=== PATIENT | female | born 1980 | race Caucasian/White ===

== ENCOUNTER 2018-08-08 12:00 | Inpatient (IN) | payer OTHER ==
[~2018-08-08] VITALS: Ht 162.6 cm; Wt 91.3 kg
[2018-08-08 13:36] VITALS: Ht 162.6 cm; Wt 91.3 kg
[2018-08-08 13:37] VITALS: BP 133/96; RESP 20
[2018-08-08] MEDS ORDERED: LABE100T7 PO (13:40)
[2018-08-08] MEDS ORDERED: THYR90TA PO (13:41)
[2018-08-08] MEDS ORDERED: CARBOPROST 250 MCG INJ IM PRN (14:00)
[2018-08-08] MEDS ORDERED: OXYTOCIN 30 UNITS/LR 500 ML IV SCH ×2 (14:00)
[2018-08-08] MEDS ORDERED: MISOPROSTOL 200 MCG TAB PR PRN (14:00)
[2018-08-08] MEDS ORDERED: LIDOCAINE 1% (MPF) 30 ML INJ INJ PRN (14:00)
[2018-08-08] MEDS ORDERED: METHYLERGONOVINE 0.2 MG INJ IM PRN (14:00)
[2018-08-08] MEDS ORDERED: OXYTOCIN 30 UNITS/LR 500 ML IV PRN (14:00)
[2018-08-08] MEDS ORDERED: IBUPROFEN 600 MG TAB PO PRN (14:00)
[2018-08-08] MEDS: LACTATED RINGER'S 1,000 ML IV SCH ×2 (15:01→22:44)
[2018-08-08] MEDS: MISOPROSTOL 50 MCG CAPSULE VAG SCH ×3 (15:55→20:00)
[2018-08-08] MEDS ORDERED: MISOPROSTOL 50 MCG CAPSULE VAG SCH (17:00)
[2018-08-08] MEDS: LABETALOL 100 MG TAB PO SCH (21:10)
--- NOTE | 2018-08-08 22:05 | PREOPHP ---
DATE OF ADMISSION: 08/08/2018 HISTORY OF PRESENT ILLNESS: This is a 37-year-old female, 2, para 1, abortions 0, due date o f 08/15/2018. Last period 11/08/2017. The patient had a previous vaginal delivery in 2017 and a hea lthy baby girl, at which time, she had preeclampsia. This patient came for follow up at 13 weeks of her and she had declined amniocentesis. She had done a few visits to the perinat ologist during the , at which time, she was diagnosed with a low lying placenta that moved u p and then she was diagnosed with a fibroid that was about 5 cm in diameter and was behind the placen ta, but did not give her any hard time. The patient came in with a weight of 180 and she gained 20 p ounds during this . Towards the third trimester, she became slightly anemic. She passed 1 hour PP and all the other tests were negative. She was immune to rubella and she had no other proble ms. GBS was negative, but she started having slight raising of her blood pressure, for which labetal ol was ordered 100 mg b.i.d. The patient was becoming slightly edematous and her blood pressure was coming up controlled with labetalol. She had no headaches, dizziness, epigastric pain and normal ref lexes, and the patient was advised for induction at 39 weeks since the blood pressure was borderline. The patient did not meet the criteria for preeclampsia but she was getting swollen with a little hy perreflexia and no signs of preeclampsia, but induction was a decision to avoid the possibility of a recurrent preeclampsia. PAST MEDICAL HISTORY: Raghavendra and pernicious anemia. ALLERGIES: SHE IS ALLERGIC TO SULFA. FAMILY HISTORY: Diabetes in her father, heart disease and GI problems. The sister with anemia as we ll. SOCIAL HISTORY: The patient does not drink or smoke, and she is pretty healthy. PHYSICAL EXAMINATION: VITAL SIGNS: Stable. She weighs 203, blood pressure is 140/80 with a starting blood pressure of the same about 130/80 in the beginning of the . The patient is afebrile and the pulse is 80, r espirations 16. HEAD AND NECK: Normal. CHEST: Clear. HEART: Normal sinus rhythm. LUNGS: Clear. BREASTS: Soft, nontender, no masses. ABDOMEN: Soft. Uterus at 39 weeks. The heart tones are normal. PELVIC: With a cervix that is fingertip not effaced, cephalic, -2, membranes intact and reflexes wer e 2+ normal pulses. EXTREMITIES: The edema is about 1+. DIAGNOSIS: A 39 weeks , impending preeclampsia with hypertension of . The patient is being admitted for induction of labor and delivery with misoprostol. Dictated By: DELGADO ROUSSEAU/RAMAKRISHNA Conf#: [id number] DID#: [id number]
[2018-08-09] MEDS: MISOPROSTOL 50 MCG CAPSULE VAG SCH ×3 (04:00→09:00)
[2018-08-09] MEDS: LACTATED RINGER'S 1,000 ML IV SCH ×2 (06:02→07:02)
--- NOTE | 2018-08-09 06:18 | PREAC ---
Date/Time of Note Date/Time of Note DATE: 08/09/18 TIME: 06:16 Anesthesia Eval and Record Evaluation Time Pre-Procedure Interview DATE: 08/09/18 TIME: 06:16 Age 38 Sex female NPO: 8 hrs Preoperative diagnosis IUP Planned procedure L&D Epidural Past Medical History Past Medical History: Includes Cardio: HTN Endo: Hypothyroid Surgery & Anesthesia Issues No known issue Meds Anticoagulation: No Beta Reji within 24 hr: Yes Reason Beta Reji not given: Pt. not on B-Reji Reported Medications Thyroid,Pork (FUNCTIONAL TESTER TYPEWRITERS THYROID) 90 Mg Tablet, 180 MG PO ACB A, TAB 08/08/18 Labetalol Hcl* (Labetalol Hcl*) 100 Mg Tablet, 100 MG PO BID, TAB 08/08/18 Current Medications Lactated Ringer's 1,000 ml @ 125 mls/hr Q8H IV Last administered on 08/09/18at 06:02; Admin Dose 125 MLS/HR; Start 08/08/18 at 13:44 Lidocaine (Xylocaine 1% (Mpf)) 30 ml ONCE PRN INJ .EPISIOTOMY; Start 08/08/18 at 14:00 Oxytocin/Lactated Ringer's 500 ml @ 500 mls/hr ONCE POST IV ; Start 08/08/18 at 14:00 Oxytocin/Lactated Ringer's 500 ml @ 125 mls/hr POST IV ; Start 08/08/18 at 14:00 Ibuprofen (Motrin) 600 mg ONCE PRN PO .PAIN 1-5; Start 08/08/18 at 14:00 Oxytocin/Lactated Ringer's 500 ml @ 0 mls/hr ONCE PRN IV .VAGINAL BLEEDING; Start 08/08/18 at 14:00 Methylergonovine Maleate (Methergine) 0.2 mg ONCE PRN IM .VAGINAL BLEEDING; Start 08/08/18 at 14:00 Carboprost Tromethamine (Hemabate) 250 mcg ONCE PRN IM .VAGINAL BLEEDING; Start 08/08/18 at 14:00 Misoprostol (Cytotec) 1,000 mcg ONCE PRN NC .VAGINAL BLEEDING; Start 08/08/18 at 14:00 Labetalol HCl (Normodyne) 100 mg BID PO Last administered on 08/08/18at 21:10; Admin Dose 100 MG; Start 3/13/19 at 21:00 Thyroid ([place] Thyroid) 180 mg DAILY PO ; Start 08/09/18 at 09:00 Misoprostol (Cytotec 50 Mcg Capsule) 50 mcg Q4 VAG Last administered on 08/08/18at 15:55; Admin Dose 50 MCG; Start 08/08/18 at 16:00 Meds reviewed: Yes Allergies Coded Allergies: Sulfa (Sulfonamide Antibiotics) (Verified Allergy, Unknown, 08/08/18) Allergies Reviewed: Yes Labs/Studies Labs Reviewed: Reviewed by anesthesiologist Result Diagram: 08/08/18 1355 08/08/18 1355 Laboratory Tests 08/08/18 13:55 Blood Bank Test 08/08/18 13:55 Antibody Screen NEGATIVE Blood Type A POSITIVE Rh Immune Globulin Candidate NO test: Positive Studies: ECG Pre-procedure Exam Last vitals Vital Signs Date Temp Pulse Resp B/P (MAP) Pulse Ox O2 O2 Flow FiO2 Time Delivery Rate 08/08/18 98.0 20 133/96 Room Air 13:37 (108) Airway: Adequate mouth opening, Adequate thyromental dist Mallampati: Mallampati II Teeth: Normal Lung: Normal Heart: Normal ASA Physical Status ASA physical status: 3 Emergency: None Planned Anesthetic Neuraxial: Epidural Planned Pain Management Epidural Pre-operative Attestations Prior to commencing anesthesia and surgery, the patient was re-evaluated, there was verification of: *The patient's identity *The results of appropriate recent lab work and preoperative vital signs *The above evaluation not changing prior to induction *Anesthetic plan, risk benefits, alternative and complications discussed with patient/family; questions answered; patient/family understands, accepts and wishes to proceed. KARLY SMALL MD Aug 09, 2018 06:18
[2018-08-09] MEDS ORDERED: ROPIVACAINE 0.2% 100 ML ONE (06:20)
[2018-08-09] MEDS ORDERED: ONDANSETRON 4 MG INJ IV PRN ×2 (06:30→12:00)
[2018-08-09] MEDS ORDERED: DIPHENHYDRAMINE 50 MG INJ IV PRN ×2 (06:30→12:00)
[2018-08-09] MEDS ORDERED: NALOXONE (0.4 MG/ML) INJ IV PRN (06:30)
[2018-08-09] MEDS ORDERED: FENTAnyl 2MCG/ML-ROPIV 0.2% 100 ML BAG EPI SCH ×2 (06:30)
[2018-08-09] MEDS ORDERED: THYROID 30 MG TAB PO SCH (09:00)
[2018-08-09] MEDS: LABETALOL 100 MG TAB PO SCH ×2 (09:06→21:49)
[2018-08-09] MEDS ORDERED: OXYTOCIN 30 UNITS/LR 500 ML IV SCH (09:30)
--- NOTE | 2018-08-09 11:58 | LDN ---
Date/Time of Note Date/Time of Note DATE: 08/09/18 TIME: 11:55 Delivery Summary 38 years old female admitted for induction of labor due to hypertension at 39 weeks Patient had a previous vaginal delivery 2 years ago Had no PIH at this time Weeks of Gestation At 39.1 weeks Placenta Delivered: Spontaneously Meconium: none, Light Episiotomy: No Laceration repair: Vaginal mucosa laceration repaired under epidural Anesthesia type: Epidural Sponge & Needle done & correct: Yes All needle counts correct: Yes Any foreign bodies felt in the: No Delivery Information Sex Infant Sex: female Apgars 1 Minute: 9 5 Minute: 9 Suctioning Nose & mouth suctioned at ricky: Yes Delee suction performed: No Umbilical Cord Umbilical cord with: 3 Vessels Cord presentations: no nuchal cord Cord Blood was obtained: Yes Mother & Baby Disposition Disposition Mom & Baby to Maternity; Good: Yes DELGADO LION MD Aug 09, 2018 11:58
[2018-08-09] MEDS ORDERED: DIPHENHYDRAMINE 25 MG CAP PO PRN (12:00)
[2018-08-09] MEDS ORDERED: OXYTOCIN 30 UNITS/LR 500 ML IV PRN (12:00)
[2018-08-09] MEDS: IBUPROFEN 800 MG TAB PO SCH ×2 (12:00→18:00)
[2018-08-09] MEDS ORDERED: METHYLERGONOVINE 0.2 MG INJ IM PRN (12:00)
[2018-08-09] MEDS ORDERED: THYROID PORK 180 MG PO SCH (12:00)
[2018-08-09] MEDS ORDERED: LANOLIN HPA 1 PKT TOP PRN (12:00)
[2018-08-09] MEDS ORDERED: SENNA/DOCUSATE NA (8.6MG/50MG) TAB PO PRN (12:00)
[2018-08-09] MEDS ORDERED: HYDROCODONE/APAP (5/325) TAB PO PRN ×2 (12:00)
[2018-08-09] MEDS ORDERED: ACETAMINOPHEN 325 MG TAB PO PRN (12:00)
[2018-08-09] MEDS ORDERED: MAGNESIUM HYDROXIDE 30ML CUP PO PRN (12:00)
[2018-08-09] MEDS ORDERED: CARBOPROST 250 MCG INJ IM PRN (12:00)
[2018-08-09] MEDS ORDERED: DIBUCAINE 1% 30 GM OINT TOP PRN (12:00)
[2018-08-09] MEDS ORDERED: MISOPROSTOL 200 MCG TAB PR PRN (12:00)
[2018-08-09] MEDS ORDERED: ONDANSETRON 4 MG TAB PO PRN (12:00)
[2018-08-09 14:20] VITALS: BP 147/83; PULSE 85; RESP 18
[2018-08-09] MEDS: ACETAMINOPHEN 325 MG TAB PO PRN (14:35)
[2018-08-09 15:20] VITALS: BP 140/69; PULSE 89; RESP 18
[2018-08-09 16:20] VITALS: BP 138/89; PULSE 82; RESP 82
[2018-08-09] MEDS: BENZOCAINE 20% 56 ML SPRAY TOP PRN ×2 (16:39→16:40)
[2018-08-09] MEDS: LACTATED RINGER'S 1,000 ML IV* SCH ×2 (17:38→19:59)
[2018-08-09 19:50] VITALS: BP 142/89; PULSE 100; RESP 20
[2018-08-10] MEDS: ACETAMINOPHEN 325 MG TAB PO PRN ×2 (00:12→05:01)
[2018-08-10 00:28] VITALS: BP 132/75; PULSE 89; RESP 20
[2018-08-10 04:34] VITALS: BP 120/83; PULSE 71; RESP 18
[2018-08-10] MEDS: IBUPROFEN 800 MG TAB PO SCH ×3 (06:00→12:00)
[2018-08-10 08:00] VITALS: BP 132/91; PULSE 70; RESP 18
[2018-08-10] MEDS ORDERED: THYROID 30 MG TAB PO SCH (09:00)
--- NOTE | 2018-08-10 10:21 | PN ---
Date/Time of Note Date/Time of Note DATE: 08/10/18 TIME: 10:20 OB Subjective Subjective Subjective feel good. stable. uterus comtracted lochia normal breast feeding OB Objective HEENT: WNL Heart: Rhythm Normal Lungs: Clear, Equal Abdomen: WNL Extremities: Normal Reflexes: Normal DELGADO LION MD Aug 10, 2018 10:21
[2018-08-10] MEDS: LABETALOL 100 MG TAB PO SCH (10:30)
--- NOTE | 2018-08-10 13:05 | PAC ---
Date/Time of Note Date/Time of Note DATE: 08/10/18 TIME: 13:04 Post-Anesthesia Notes Post-Anesthesia Note Last documented vital signs Vital Signs Date Temp Pulse Resp B/P (MAP) Pulse Ox O2 O2 Flow FiO2 Time Delivery Rate 08/10/18 97.9 70 18 132/91 Room Air 08:00 (105) Activity: WNL Respiratory function: WNL Cardiovascular function: WNL Mental status: Baseline Pain reasonably controlled: Yes Hydration appropriate: Yes Nausea/Vomiting absent: Yes Comments BP:112/56, P:78, Spo2:100%, T:98,9 KARLY SMALL MD Aug 10, 2018 13:04
[2018-08-10 16:20] VITALS: BP 146/85; PULSE 83; RESP 18
--- NOTE | 2018-08-11 00:05 | DS ---
Date/Time of Note Date/Time of Note DATE: 08/11/18 TIME: 00:03 Obstetrical Discharge Record Final Diagnosis Final Diagnosis: Term delivered Vaginal Delivery Obstetrical Delivery: Spontaneous Complications Augmentation: Yes Condition on Discharge Physical Assessment Voiding: Yes Bowel Movement: Yes Breast: Soft, non-tender, Filling Fundus: Firm Calf Tenderness: No Patient Condition: Good DELGADO LION MD Aug 11, 2018 00:05
[2018-08-11] MEDS ORDERED: DIPHTH/TET/ACEL PERTUSS (ADULT) 0.5 ML VIAL IM* ONE (09:00)
[2018-08-11] MEDS ORDERED: MEASLES,MUMPS,RUBELLA VACCINE INJ SC* ONE (09:00)
[2018-08-11] MEDS ORDERED: VARICELLA VACCINE LIVE/PF 1,350 UNIT/0.5 ML ML SC* ONE (09:00)
== END 2018-08-10 17:05 | disposition home or self-care (01) | DRG 807 ==
LOC: L-D 12:24 → PP1 08-09 14:07
PROVIDERS: ADMIT Obstetrics & Gynecology; ATTEND Obstetrics & Gynecology
PROC: 10E0XZZ Delivery of Products of Conception, External Approach (ICD-10-PCS; principal; 2018-08-09)
PROC: 0HQ9XZZ Repair Perineum Skin, External Approach (ICD-10-PCS; 2018-08-09)
PROC: 3E0P7VZ Introduction of Hormone into Female Reproductive, Via Natural or Artificial Opening (ICD-10-PCS; 2018-08-09)
DX: O10.02 Pre-existing essential hypertension complicating childbirth (principal); Z37.0 Single live birth; O99.284 Endocrine, nutritional and metabolic diseases complicating childbirth; E03.9 Hypothyroidism, unspecified; O77.0 Labor and delivery complicated by meconium in amniotic fluid; O70.0 First degree perineal laceration during delivery; Z3A.39 39 weeks gestation of pregnancy; Z87.59 Personal history of other complications of pregnancy, childbirth and the puerperium
CPT/HCPCS: 62319; 76815; 80053; 84560; 85025; 85384; 85610; 85730; 86592; 86850; 86900; 86901; 87340; 99464; J2590; J2795; J7120